=== PATIENT | female | born 1955 | race African-American/Black ===

== ENCOUNTER → 2017-09-28 | Outpatient (CLI) | payer OTHER ==
[~2017-09-28] MED LIST: ATOR-2 PO; HYDR12.58 PO; LISI-170 PO
[2017-09-28 13:38] LABS: MICROSCOPIC AUTO
[2017-09-28 13:39] LABS: BASOPHILS # (AUTO) 0.04 x10^3/uL (0-0.1); BASOPHILS % (AUTO) 1 % (0-1); EOSINOPHILS # (AUTO) 0.11 x10^3/uL (0-0.4); EOSINOPHILS % (AUTO) 2 % (1-7); LYMPHOCYTES % (AUTO) 37 % (22-44); MD NO; MEAN CORPUSCULAR HEMOGLOBIN 30.5 pg (27.0-34.8); MEAN CORPUSCULAR HGB CONC 32.9 g/dL (32.4-35.8); MEAN CORPUSCULAR VOLUME 92.8 fL (80-100); MEAN PLATELET VOLUME 7.4 fL (7.4-10.4); MONOCYTES # (AUTO) 0.29 x10^3/uL (0.2-0.8); MONOCYTES % (AUTO) 6 % (2-9); NEUTROPHILS % (AUTO) 55 % (42-75); PLATELET COUNT 416 x10^3/uL (130-400); RED BLOOD COUNT 4.31 x10^6/uL (3.82-5.3); RED CELL DISTRIBUTION WIDTH 14.5 % (9.6-15.2)
[2017-09-28 13:40] LABS: CULTURE INDICATED? YES
[2017-09-28 13:46] LABS: INTERNATIONAL NORMALIZED RATIO 0.99 (0.93-1.1); PROTHROMBIN TIME 10.2 Seconds (9.6-11.5)
[2017-09-28 13:49] LABS: ALANINE AMINOTRANSFERASE 41 U/L (12-78); ALBUMIN 3.7 g/dL (3.4-5.0); ANION GAP 7 mmol/L (5-15); CHLORIDE 107 mmol/L (98-107); CREATININE 0.73 mg/dL (0.55-1.02)
[2017-09-28 13:51] LABS: ALKALINE PHOSPHATASE 150 U/L (45-117); BILIRUBIN,TOTAL 0.4 mg/dL (0.2-1.0)
[2017-09-28 14:21] LABS: HEMOGLOBIN A1C 5.7 % (4.2-6.3)
== END | disposition home or self-care (01) ==
LOC: STAR 12:15
PROVIDERS: ATTEND Orthopaedic Surgery
DX: Z01.818 Encounter for other preprocedural examination (principal); M16.12 Unilateral primary osteoarthritis, left hip; R79.89 Other specified abnormal findings of blood chemistry
CPT/HCPCS: 36415; 80053; 81001; 83036; 85025; 85610; 85730; 87081; 87086; 87806; 93005; G0475

== ENCOUNTER 2017-10-03 05:38 | Inpatient (IN) | payer OTHER ==
[~2017-10-03] VITALS: Ht 160 cm; Wt 84.6 kg
[2017-10-03] MEDS ORDERED: VANCOMYCIN PER PHARMACY MC ONE (06:11)
[2017-10-03] MEDS ORDERED: VANCOMYCIN 1,500 MG in SODIUM CHLORIDE 0.9% 250 ML IV ONE (06:30)
[2017-10-03] MEDS ORDERED: GABAPENTIN 300 MG CAPSULE PO ONE (06:30)
[2017-10-03] MEDS ORDERED: ACETAMINOPHEN 500 MG TABLET PO ONE (06:30)
[2017-10-03] MEDS ORDERED: KETOROLAC 60 MG/2 ML ONE (06:37)
[2017-10-03] MEDS ORDERED: TRANEXAMIC ACID 100 MG/ML, 10ML ONE ×4 (06:37)
[2017-10-03] MEDS ORDERED: ROPIvacaine/PF 0.2%, 20 ML ONE (06:37)
[2017-10-03] MEDS ORDERED: EPINEPHRINE 1 MG/ML, 1ML ONE (06:38)
[2017-10-03] MEDS: LACTATED RINGERS 1,000 ML IV SCH ×2 (06:45→06:46)
[2017-10-03] MEDS ORDERED: MIDAZOLAM 1 MG/ML, 2ML ONE (07:02)
[2017-10-03] MEDS ORDERED: PROPOFOL 10 MG/ML, 20ML ONE (07:03)
[2017-10-03] MEDS ORDERED: FENTANYL PF 250 MCG/5ML ONE (07:03)
[2017-10-03] MEDS ORDERED: LIDOCAINE-MPF 2% ,5ML ONE (07:03)
[2017-10-03] MEDS ORDERED: WATER-INJECTION,STERILE 10 ML IV ONE (07:05)
[2017-10-03] MEDS ORDERED: PHENYLEPHRINE 10 MG/ML ONE (07:05)
[2017-10-03] MEDS ORDERED: CEFAZOLIN 1,000 MG ONE ×2 (07:05)
[2017-10-03] MEDS ORDERED: DEXAMETHASONE 4 MG/ML, 1ML ONE ×2 (07:06)
[2017-10-03] MEDS ORDERED: ROCURONIUM 10MG/ML,5ML ONE (07:07)
[2017-10-03] MEDS ORDERED: OxyconTIN ER 10 MG TAB.ER ONE (07:10)
[2017-10-03] MEDS ORDERED: ONDANSETRON ODT 8 MG ONE (07:10)
[2017-10-03] MEDS ORDERED: ALUMINUM/MAG/SIMETHICONE 30 ML UDC PO PRN (07:30)
[2017-10-03] MEDS ORDERED: OXYcodone IR 5MG TABLET PO PRN (07:30)
[2017-10-03] MEDS ORDERED: ONDANSETRON 4 MG TABLET PO PRN (07:30)
[2017-10-03] MEDS ORDERED: ACETAMINOPHEN 650 MG/20.3 ML UDC PO PRN (07:30)
[2017-10-03] MEDS ORDERED: BISACODYL 10 MG SUPP PR PRN (07:30)
[2017-10-03] MEDS ORDERED: ONDANSETRON 2MG/ML, 2ML IV PRN (07:30)
[2017-10-03] MEDS ORDERED: DIAZEPAM 5 MG TABLET PO PRN (07:30)
[2017-10-03] MEDS ORDERED: MAGNESIUM HYDROXIDE 8%, 30ML UDC PO PRN (07:30)
[2017-10-03] MEDS ORDERED: HYDROmorphone 1 MG/ML, 1ML IV PRN ×2 (07:30→08:00)
[2017-10-03] MEDS ORDERED: DIPHENHYDRAMINE 50 MG CAPSULE PO PRN (07:30)
[2017-10-03] MEDS ORDERED: CEFAZOLIN PMX 1GM/50ML 50 ML IVPB SCH (07:30)
[2017-10-03] MEDS ORDERED: SENNA/DOCUSATE TABLET PO PRN (07:30)
[2017-10-03] MEDS ORDERED: MORPHINE SULFATE 4 MG/ML, 1ML ONE (07:56)
[2017-10-03] MEDS ORDERED: HALOPERIDOL 5 MG/ML IV PRN (08:00)
[2017-10-03] MEDS ORDERED: hydrALAzine 20 MG/ML, 1ML IV PRN (08:00)
[2017-10-03] MEDS ORDERED: LABETALOL 5MG/ML, 20ML IV PRN (08:00)
[2017-10-03] MEDS ORDERED: MEPERIDINE/PF 25MG/0.5ML IVPush PRN (08:00)
[2017-10-03] MEDS ORDERED: OXYcodone 5 MG/5 ML ORAL.SOL UDC PO PRN (08:00)
[2017-10-03] MEDS ORDERED: PROMETHAZINE 25 MG/ML, 1ML IV PRN (08:00)
[2017-10-03] MEDS ORDERED: GLYCOPYRROLATE 0.4 MG/2 ML, 2ML ONE (08:42)
[2017-10-03] MEDS ORDERED: NEOSTIGMINE 1 MG/ML, 10ML ONE (08:42)
[2017-10-03] MEDS: DOCUSATE 100 MG CAPSULE PO SCH ×2 (09:00→21:42)
[2017-10-03] MEDS: TAMSULOSIN 0.4 MG CAP.ER.24H PO SCH (09:00)
[2017-10-03] MEDS ORDERED: FENTANYL PF 100 MCG/2ML ONE (09:18)
[2017-10-03] MEDS ORDERED: OXYcodone 5 MG/5 ML ORAL.SOL UDC ONE (09:19)
[2017-10-03] MEDS: FENTANYL PF 100 MCG/2ML IV PRN ×2 (09:21→09:37)
[2017-10-03] MEDS ORDERED: TRANEXAMIC ACID 1,000 MG in SODIUM CHLORIDE 0.9% 100 ML IVPB ONE (09:23)
[2017-10-03] MEDS ORDERED: hydrALAzine 20 MG/ML, 1ML ONE (09:46)
[2017-10-03] MEDS: D5%-0.45NACL+KCL 20MEQ 1,000 ML IV SCH ×2 (11:22→20:53)
[2017-10-03 11:32] VITALS: BP 123/63
[2017-10-03 12:54] VITALS: BP 133/72
[2017-10-03] MEDS: CEFAZOLIN PMX 1GM/50ML 50 ML IVPB SCH ×2 (14:33→23:14)
[2017-10-03] MEDS: ASPIRIN 81 MG TABLET EC PO SCH (17:57)
[2017-10-03 19:30] VITALS: BP 103/67
[2017-10-03] MEDS ORDERED: ATORVASTATIN 80 MG TABLET PO SCH (21:00)
[2017-10-04 00:20] VITALS: BP 96/61
[2017-10-04 04:19] VITALS: BP 103/66
[2017-10-04] MEDS ORDERED: DEXAMETHASONE 4 MG/ML, 1ML IVPush SCH (06:00)
[2017-10-04] MEDS: ASPIRIN 81 MG TABLET EC PO SCH (06:18)
[2017-10-04] MEDS ORDERED: KETOROLAC 30 MG/1 ML IV SCH (07:30)
[2017-10-04] MEDS: TAMSULOSIN 0.4 MG CAP.ER.24H PO SCH (08:30)
[2017-10-04] MEDS: DOCUSATE 100 MG CAPSULE PO SCH (08:31)
[2017-10-04 08:33] VITALS: BP 136/77
[2017-10-04] MEDS ORDERED: LISINOPRIL 10 MG TABLET PO SCH (09:00)
[2017-10-04] MEDS ORDERED: HYDROCHLOROTHIAZIDE 12.5 MG CAPSULE PO SCH (09:00)
[2017-10-04] MEDS ORDERED: ASPI-515 PO (11:19)
[2017-10-04] MEDS ORDERED: TRAM50TA2 PO (11:19)
[2017-10-04] MEDS ORDERED: DOCU-131 PO (11:19)
[2017-10-04] MEDS ORDERED: CELE200C PO (11:19)
[2017-10-04] MEDS ORDERED: ONDA4TAB10 PO (11:19)
[2017-10-04] MEDS ORDERED: OXYC5TAB3 PO (11:19)
[2017-10-04] MEDS ORDERED: DIAZ5TAB PO (11:19)
[2017-10-04 15:15] VITALS: BP 131/58
== END 2017-10-04 15:55 | disposition home or self-care (01) | DRG 470 ==
LOC: ORIP 05:38 → 4NOR 10:41 → DCLOUNGE 10-04 15:23
PROVIDERS: ADMIT Orthopaedic Surgery; ATTEND Orthopaedic Surgery
PROC: 0SRB06Z Replacement of Left Hip Joint with Oxidized Zirconium on Polyethylene Synthetic Substitute, Open Approach (ICD-10-PCS; principal; 2017-10-03 07:30)
DX: M87.852 Other osteonecrosis, left femur (principal); M16.12 Unilateral primary osteoarthritis, left hip; M65.862 Other synovitis and tenosynovitis, left lower leg; I10 Essential (primary) hypertension
CPT/HCPCS: 36415; 85014; 85018; 86850; 86900; 87015; 87070; 87075; 87102; 87116; 87176; 87205; 87206; C1713; J0171; J0690; J1100; J1885; J2250; J2704; J2710; J2795; J3010; J3370; J3490; Q0162; C1776; J0360; J2370; J3480; J7050; J7120

== ENCOUNTER → 2018-01-30 | Outpatient (CLI) | payer OTHER ==
[~2018-01-30] MED LIST changes: +ASPI-515 PO; +CELE200C PO; +DIAZ5TAB PO; +DOCU-131 PO; +ONDA4TAB10 PO; +OXYC5TAB3 PO; +TRAM50TA2 PO
[2018-01-30 14:51] LABS: INTERNATIONAL NORMALIZED RATIO 0.97 (0.93-1.1)
[2018-01-30 14:52] LABS: ALBUMIN 4.3 g/dL (3.4-5.0); ANION GAP 6 mmol/L (5-15); CALCIUM 10.1 mg/dL (8.5-10.1); CHLORIDE 106 mmol/L (98-107); MEAN CORPUSCULAR HEMOGLOBIN 29.9 pg (27.0-34.8); MEAN CORPUSCULAR HGB CONC 33.2 g/dL (32.4-35.8); MEAN CORPUSCULAR VOLUME 90.1 fL (80-100); MEAN PLATELET VOLUME 7.6 fL (7.4-10.4); PLATELET COUNT 376 x10^3/uL (130-400); RED BLOOD COUNT 4.77 x10^6/uL (3.82-5.3); RED CELL DISTRIBUTION WIDTH 16.5 % (9.6-15.2)
[2018-01-30 14:55] LABS: ALANINE AMINOTRANSFERASE 34 U/L (12-78); ALKALINE PHOSPHATASE 166 U/L (45-117); BILIRUBIN,TOTAL 0.5 mg/dL (0.2-1.0); CREATININE 0.66 mg/dL (0.55-1.02); TOTAL PROTEIN 8.4 g/dL (6.4-8.2)
[2018-01-30 15:11] LABS: BASOPHILS # (AUTO) 0.17 x10^3/uL (0-0.1); BASOPHILS % (AUTO) 3 % (0-1); EOSINOPHILS # (AUTO) 0.09 x10^3/uL (0-0.4); EOSINOPHILS % (AUTO) 2 % (1-7); LYMPHOCYTES % (AUTO) 37 % (22-44); MD SCAN; MONOCYTES % (AUTO) 7 % (2-9); NEUTROPHILS # (AUTO) 2.73 x10^3/uL (1.8-6.8); NEUTROPHILS % (AUTO) 51 % (42-75)
[2018-01-30 15:18] LABS: HEMOGLOBIN A1C 5.6 % (4.2-6.3)
[2018-01-30 15:21] LABS: MICROSCOPIC AUTO
[2018-01-30 15:24] LABS: CULTURE INDICATED? YES
== END | disposition home or self-care (01) ==
LOC: STAR 13:22
PROVIDERS: ATTEND Orthopaedic Surgery
DX: Z01.818 Encounter for other preprocedural examination (principal); M16.11 Unilateral primary osteoarthritis, right hip; M25.551 Pain in right hip
CPT/HCPCS: 36415; 80053; 81001; 83036; 85025; 85610; 85730; 87081; 87086; 87806; 93005; G0475

== ENCOUNTER 2018-02-20 11:30 | Inpatient (IN) | payer OTHER ==
[~2018-02-20] VITALS: Ht 160 cm; Wt 90.5 kg
[2018-02-27] MEDS ORDERED: ROPIvacaine/PF 0.2%, 20 ML ONE (07:06)
[2018-02-27] MEDS ORDERED: TRANEXAMIC ACID 100 MG/ML, 10ML ONE ×5 (07:06→11:39)
[2018-02-27] MEDS ORDERED: EPINEPHRINE 1 MG/ML, 1ML ONE (07:06)
[2018-02-27] MEDS ORDERED: KETOROLAC 60 MG/2 ML ONE (07:06)
[2018-02-27] MEDS ORDERED: AMLO10TA6 PO (09:32)
[2018-02-27] MEDS ORDERED: MIDAZOLAM 1 MG/ML, 2ML ONE (09:34)
[2018-02-27] MEDS ORDERED: FENTANYL PF 250 MCG/5ML ONE (09:34)
[2018-02-27 09:35] VITALS: BP 165/99
[2018-02-27] MEDS ORDERED: ACETAMINOPHEN 500 MG TABLET ONE (10:10)
[2018-02-27] MEDS ORDERED: GABAPENTIN 300 MG CAPSULE ONE (10:11)
[2018-02-27] MEDS ORDERED: GABAPENTIN 300 MG CAPSULE PO ONE (10:30)
[2018-02-27] MEDS ORDERED: ACETAMINOPHEN 500 MG TABLET PO ONE (10:30)
[2018-02-27] MEDS ORDERED: ONDANSETRON 2MG/ML, 2ML ONE (10:45)
[2018-02-27] MEDS ORDERED: PROPOFOL 10 MG/ML, 20ML ONE (10:45)
[2018-02-27] MEDS ORDERED: DEXAMETHASONE 4 MG/ML, 1ML ONE (10:45)
[2018-02-27] MEDS ORDERED: CEFAZOLIN 1,000 MG ONE (10:45)
[2018-02-27] MEDS ORDERED: EPHEDRINE 50 MG/ML, 1ML ONE (10:45)
[2018-02-27] MEDS ORDERED: ROCURONIUM 10 MG/ML,10ML ONE (10:45)
[2018-02-27] MEDS ORDERED: SUCCINYLCHOLINE 20 MG/ML, 10ML ONE (10:45)
[2018-02-27] MEDS ORDERED: LIDOCAINE 4%, 4 ML SYR/CANN TP ONE (10:45)
[2018-02-27] MEDS ORDERED: MAGNESIUM HYDROXIDE 8%, 30ML UDC PO PRN (11:00)
[2018-02-27] MEDS ORDERED: ACETAMINOPHEN 650 MG/20.3 ML UDC PO PRN (11:00)
[2018-02-27] MEDS ORDERED: DIPHENHYDRAMINE 50 MG CAPSULE PO PRN (11:00)
[2018-02-27] MEDS ORDERED: PROMETHAZINE 12.5 MG SUPP PR PRN (11:00)
[2018-02-27] MEDS ORDERED: PROMETHAZINE 25 MG/ML, 1ML IM PRN (11:00)
[2018-02-27] MEDS ORDERED: ALUMINUM/MAG/SIMETHICONE 30 ML UDC PO PRN (11:00)
[2018-02-27] MEDS ORDERED: SENNA/DOCUSATE TABLET PO PRN (11:00)
[2018-02-27] MEDS ORDERED: HYDROmorphone 1 MG/ML, 1ML IV PRN (11:00)
[2018-02-27] MEDS ORDERED: ONDANSETRON 2MG/ML, 2ML IV PRN ×2 (11:00→11:30)
[2018-02-27] MEDS ORDERED: ONDANSETRON 4 MG TABLET PO PRN (11:00)
[2018-02-27] MEDS ORDERED: FENTANYL PF 100 MCG/2ML ONE (11:22)
[2018-02-27] MEDS ORDERED: ENALAPRILAT 1.25 MG/ML, 2ML IV PRN (11:30)
[2018-02-27] MEDS ORDERED: ONDANSETRON ODT 8 MG PO PRN (11:30)
[2018-02-27] MEDS ORDERED: MEPERIDINE/PF 25MG/0.5ML IVPush PRN (11:30)
[2018-02-27] MEDS ORDERED: hydrALAzine 20 MG/ML, 1ML IV PRN (11:30)
[2018-02-27] MEDS ORDERED: LABETALOL 5MG/ML, 20ML IV PRN (11:30)
[2018-02-27] MEDS ORDERED: ACETAMINOPHEN 325 MG TABLET PO PRN (11:30)
[2018-02-27] MEDS ORDERED: MORPHINE SULFATE 4 MG/ML, 1ML IVPush PRN (11:30)
[2018-02-27] MEDS ORDERED: OXYcodone 5 MG/5 ML ORAL.SOL UDC PO PRN (11:30)
[2018-02-27] MEDS ORDERED: FENTANYL PF 100 MCG/2ML IV PRN (11:30)
[2018-02-27] MEDS ORDERED: DIAZEPAM 5 MG/ML, 2ML IVPush PRN (11:30)
[2018-02-27] MEDS ORDERED: PROCHLORPERAZINE 5 MG/ML, 2ML IM PRN (11:30)
[2018-02-27] MEDS: HYDROmorphone 1 MG/ML, 1ML IV PRN ×2 (12:18→12:26)
[2018-02-27] MEDS ORDERED: HYDROmorphone 2 MG/ML, 1ML ONE (12:21)
[2018-02-27] MEDS ORDERED: OXYcodone 5 MG/5 ML ORAL.SOL UDC ONE (12:21)
[2018-02-27] MEDS ORDERED: TRANEXAMIC ACID 1,000 MG in SODIUM CHLORIDE 0.9% 100 ML IVPB ONE (13:00)
[2018-02-27] MEDS ORDERED: CEFAZOLIN PMX 1GM/50ML 50 ML IVPB SCH (14:00)
[2018-02-27] MEDS: D5%-0.45NACL+KCL 20MEQ 1,000 ML IV SCH (15:31)
[2018-02-27] MEDS: ASPIRIN 81 MG TABLET EC PO SCH (18:14)
[2018-02-27 20:23] VITALS: BP 116/76
[2018-02-27] MEDS: DOCUSATE 100 MG CAPSULE PO SCH (20:32)
[2018-02-27] MEDS ORDERED: ATORVASTATIN 80 MG TABLET PO SCH (21:00)
[2018-02-28 00:03] VITALS: BP 120/71
[2018-02-28] MEDS ORDERED: CEFAZOLIN PMX 1GM/50ML 50 ML IVPB SCH (03:00)
[2018-02-28] MEDS: D5%-0.45NACL+KCL 20MEQ 1,000 ML IV SCH (03:04)
[2018-02-28] MEDS: OXYcodone IR 5MG TABLET PO PRN ×2 (03:04→09:43)
[2018-02-28 04:08] VITALS: BP 150/82
[2018-02-28] MEDS: ASPIRIN 81 MG TABLET EC PO SCH (05:58)
[2018-02-28] MEDS ORDERED: DEXAMETHASONE 4 MG/ML, 1ML IVPush SCH (06:00)
[2018-02-28 07:20] VITALS: BP 157/79
[2018-02-28] MEDS: DOCUSATE 100 MG CAPSULE PO SCH (08:51)
[2018-02-28] MEDS ORDERED: AMLODIPINE 5 MG TABLET PO SCH (09:00)
[2018-02-28] MEDS ORDERED: TAMSULOSIN 0.4 MG CAP.ER.24H PO SCH (09:00)
[2018-02-28] MEDS ORDERED: HYDROCHLOROTHIAZIDE 12.5 MG CAPSULE PO SCH (09:00)
[2018-02-28] MEDS ORDERED: LISINOPRIL 10 MG TABLET PO SCH (09:00)
[2018-02-28 11:29] VITALS: BP 127/75
[2018-02-28] MEDS ORDERED: KETOROLAC 30 MG/1 ML IV SCH (14:00)
== END 2018-02-28 12:30 | disposition home or self-care (01) | DRG 470 ==
LOC: ORIP 02-27 08:30 → 4NOR 02-27 13:28 → DCLOUNGE 02-28 12:15
PROVIDERS: ADMIT Orthopaedic Surgery; ATTEND Orthopaedic Surgery
PROC: 0SR904Z Replacement of Right Hip Joint with Ceramic on Polyethylene Synthetic Substitute, Open Approach (ICD-10-PCS; principal; 2018-02-27 10:45)
DX: M16.11 Unilateral primary osteoarthritis, right hip (principal); M87.851 Other osteonecrosis, right femur; I10 Essential (primary) hypertension; Z79.899 Other long term (current) drug therapy
CPT/HCPCS: 36415; 85014; 85018; 86850; 86900; C1713; G0378; J0171; J0690; J1100; J1170; J1885; J2250; J2405; J2704; J2795; J3010; C1776; J0330; J3480

== ENCOUNTER → 2020-04-28 | Outpatient (CLI) | payer OTHER ==
[~2020-04-28] MED LIST changes: +AMLO-211 PO; -HYDR12.58 PO; +HYDROCHLOROTH12.5 MG PO
== END | disposition home or self-care (01) ==
LOC: CFH 13:01
PROVIDERS: ATTEND Family Medicine
DX: N64.4 Mastodynia (principal); N63.10 Unspecified lump in the right breast, unspecified quadrant
CPT/HCPCS: 76642; 77062; 77066; G0279